=== PATIENT | male | born 1960 | race Caucasian/White ===

== ENCOUNTER → 2022-09-11 | Outpatient (CLI) | payer MEDICARE ==
[2022-09-11 16:50] LABS: BUN/Creat Ratio 20.78 Ratio (12.00-20.00); Blood Urea Nitrogen 18.7 mg/dL (9.0-27.0); Calcium 9.7 mg/dL (8.7-10.3); Carbon Dioxide 29.9 mmol/L (21.6-31.8); Chloride 98 mmol/L (96-109); Glucose 160 mg/dL (70-110); Potassium 4.9 mmol/L (3.5-5.5); Sodium 138 mmol/L (135-145)
[2022-09-11 17:56] LABS: Basophils # (A) 0.05 X 10*3/uL (0.00-0.10); Basophils % (A) 0.7 %; Eosinophils # (A) 0.36 X 10*3/uL (0.04-0.35); Eosinophils % (A) 5.4 %; HCT 43.1 % (39.6-50.0); HGB 13.5 d/dL (13.0-17.0); Lymphocytes # (A) 1.26 X 10*3/uL (0.90-5.00); Lymphocytes % (A) 18.9 %; MCH 28.1 pg (27.0-32.0); MCHC 31.3 d/dL (32.0-37.0); MCV 89.6 FL (80.0-97.0); Mean Platelet Volume 9.8 FL (9.5-12.2); Monocytes # (A) 0.87 X 10*3/uL (0.20-1.00); NRBC Per 100 WBC 0 X 10*3/uL (0.00-0.01); Neutrophils # (A) 4.12 X 10*3/uL (1.80-7.70); Neutrophils % (A) 61.7 %; Platelet Count 216 X 10*3/uL (140-440); RBC 4.81 X 10*6/uL (4.40-5.60); RDW 15.5 % (11.5-14.5); WBC 6.68 X 10*3/uL (4.50-10.00)
== END | disposition home or self-care (01) ==
LOC: LABPAT 12:10
PROVIDERS: ATTEND Urology
DX: Z01.812 Encounter for preprocedural laboratory examination (principal); C61 Malignant neoplasm of prostate
CPT/HCPCS: 80048; 85025

== ENCOUNTER 2022-09-19 05:40 | Observation (INO) | payer MEDICARE ==
[~2022-09-19 05:40] MED LIST: HEPARIN SODIUM,PORCINE/PF 5,000 UNIT/0.5 ML SYRINGE SQ PRN; ceFAZolin 3 GM in SODIUM CHLORIDE 0.9% 100 ML IVPB PRN
[2022-09-19] MEDS ORDERED: DEXAMETHASONE SOD PHOSPHATE 4 MG/ML 1 ML VIAL IV ONE (06:05)
[2022-09-19] MEDS ORDERED: ONDANSETRON 4 MG/2 ML VIAL IVP ONE (06:05)
[2022-09-19] MEDS: LACTATED RINGERS 1,000 ML IV SCH (06:14)
[2022-09-19] MEDS: LACTATED RINGERS 1,000 ML IV ONE ×2 (06:20→14:39)
[2022-09-19 06:44] LABS: Glucose,Whole Blood 137 mg/dL (70-110)
--- NOTE | 2022-09-19 06:45 | P.GSHP ---
History of Present Illness H&P Date: 09/18/22 Chief Complaint: Prostate cancer The patient is a 62-year-old white male found to have an elevated PSA level of 14.6 in June 2022. STERLING revealed the prostate to be firm on the left side, an ultrasound revealed a hypoechoic lesion at the right base. 5 of 6 prostate biopsies showed Jeremie 7 (3+4) adenocarcinoma. Alternative treatment options were reviewed, the patient has elected to undergo a robotic-assisted laparoscopic prostatectomy with bilateral pelvic lymphadenectomy. He has a history coronary artery disease and was cleared by cardiology. He has previously undergone a colon resection for diverticulitis. - Cardiovascular Cardiovascular: Reports high blood pressure - Genitourinary (Male) Genitourinary: Reports urinary hesitancy Medications and Allergies Allergies Allergy/AdvReac Type Severity Reaction Status Date / Time morphine Allergy swelling,it Verified 09/19/22 06:13 chiness Surgical - Exam - General well developed, well nourished, no distress - Respiratory normal respiratory effort - Abdomen Abdomen: soft, non tender, no guarding, no rigid, no rebound - Genitourinary normal penis with no external lesions, testicles non-tender - Rectum Rectum: normal sphincter tone, no masses, other (prostate firm on left) - Psychiatric oriented to time, oriented to person, oriented to place, speech is normal, memory intact Assessment and Plan (1) Malignant neoplasm of prostate Current Visit: No Status: Acute Code(s): C61 - MALIGNANT NEOPLASM OF PROSTATE SNOMED Code(s): 756306799 Plan: The patient has been made aware of the fact that his prostate cancer may require multimodal treatment. He has elected to undergo a robotic-assisted laparoscopic prostatectomy with bilateral pelvic lymphadenectomy. Due to prior abdominal surgery, this will be attempted but the patient is aware of the possibility that it cannot be performed. Potential surgical risks have been reviewed in detail. These include anesthesia, bleeding, infection, bowel injury, urinary leak, lymphocele, and vesical neck contracture. The possibility of post-prostatectomy urinary incontinence has been made clear, and the patient is aware of the high likelihood of erectile dysfunction as he is not a candidate for a nerve sparing procedure. He is also aware of the possible need for adjuvant therapy.
[2022-09-19] MEDS ORDERED: fentaNYL (PF) 50 MCG/ML 2 ML AMP IV PRN (07:00)
[2022-09-19] MEDS ORDERED: MIDAZOLAM 2 MG/2 ML VIAL IVP ONE (07:09)
[2022-09-19] MEDS ORDERED: GLYCOPYRROLATE 0.2 MG/ML 2 ML VIAL ONE (07:48)
[2022-09-19] MEDS ORDERED: LIDOCAINE 2% INJ 20 MG/ML (2 ML VIAL) ONE (07:48)
[2022-09-19] MEDS ORDERED: DEXAMETHASONE SOD PHOSPHATE 4 MG/ML 1 ML VIAL ONE (07:48)
[2022-09-19] MEDS ORDERED: fentaNYL (PF) 50 MCG/ML 2 ML AMP ONE (07:48)
[2022-09-19] MEDS ORDERED: SODIUM CHLORIDE 0.9% (PF) 10 ML VIAL ONE (07:48)
[2022-09-19] MEDS ORDERED: NEOSTIGMINE 1 MG/ML 10 ML VIAL ONE (07:48)
[2022-09-19] MEDS ORDERED: HYDROmorphone (PF) 1 MG/ML ONE (07:48)
[2022-09-19] MEDS ORDERED: SUCCINYLCHOLINE CHLORIDE 200 MG/10 ML VIAL IV ONE (07:48)
[2022-09-19] MEDS ORDERED: ROPIVACAINE 5 MG/ML 30 ML VIAL ONE (07:48)
[2022-09-19] MEDS ORDERED: ROCURONIUM 10 MG/ML (5 ML VIAL) IV ONE (07:48)
[2022-09-19] MEDS ORDERED: MIDAZOLAM 2 MG/2 ML VIAL ONE (07:48)
[2022-09-19] MEDS ORDERED: PROPOFOL 10 MG/ML 20 ML VIAL IV ONE (07:48)
[2022-09-19] MEDS ORDERED: IV FLUID CONTINUATION 1,000 ML IV ONE (07:53)
[2022-09-19] MEDS ORDERED: BUPIVACAINE (PF) 0.25% 30 ML VIAL SQ ONE (10:41)
[2022-09-19] MEDS ORDERED: ACETAMINOPHEN TAB 325 MG TAB PO PRN (11:00)
[2022-09-19] MEDS ORDERED: ONDANSETRON 4 MG/2 ML VIAL IVP PRN (11:00)
[2022-09-19] MEDS ORDERED: KETOROLAC 15 MG/ML 1 ML VIAL IVP PRN (11:00)
--- NOTE | 2022-09-19 12:57 | P.OP ---
Date of Procedure: 09/19/22 Preoperative Diagnosis: Adenocarcinoma of the prostate Postoperative Diagnosis: Same Procedure(s) Performed: Robotic-assisted laparoscopic prostatectomy (RALP) with bilateral pelvic lymphadenectomy Anesthesia: ROOPA Surgeon: Yousuf Garrett Medical Resident #1: Logan Veliz Estimated Blood Loss (ml): 75 IV fluids (ml): 600 Condition: stable Disposition: PACU Indications for Procedure: The patient is a 62-year-old white male found to have an elevated PSA level of 14.6 in June 2022. STERLING revealed the prostate to be firm on the left side, an ultrasound revealed a hypoechoic lesion at the right base. 5 of 6 prostate biopsies showed Jeremie 7 (3+4) adenocarcinoma. Alternative treatment options were reviewed, the patient has elected to undergo a robotic-assisted laparoscopic prostatectomy with bilateral pelvic lymphadenectomy. He has a history coronary artery disease and was cleared by cardiology. He has previously undergone a colon resection for diverticulitis. Operative Findings: No evidence of extraprostatic disease. Description of Procedure: The patient was taken in the operating room and placed in the supine position. He was carefully positioned on a beanbag for stability. The abdomen and external genitalia were prepped and draped sterilely. A Howell catheter was inserted. The Bovie electrocautery was used to make a midline supraumbilical skin incision. The linea alba was carefully incised in the midline, and the peritoneum was entered. Omentum was adherent to the anterior abdominal wall inferior to this, and these adhesions were gently swept away. A gel point mini was then placed, and insufflation was performed to a pressure of 20 mm Hg. Once insufflation was performed, under camera guidance, 3 8 mm robotic ports were placed, 2 on the left and one on the right. A 12 mm port was placed on the right lateral side for use as an first assistant manager port. A 5 mm port was placed to the right of the camera port for suction. The patient was placed in Trendelenburg position, and docking was then performed to the da Leticia system utilizing a 4- arm approach. The abdomen was examined. The sigmoid colon was mobilized out of the pelvis. Adhesions were noted deep in the pelvis, some of which were lysed enough to gain access to the necessary surgical planes. However, it was evident that the small bowel would not fall out of the pelvis as desired. The peritoneum was incised lateral to the medial umbilical ligaments bilaterally, exposing the pubis. The peritoneum was then incised across the midline, allowing the bladder flap to be taken down. The endopelvic fascia was opened bilaterally, and muscular attachments from the urogenital diaphragm were swept away from the prostate. Bilateral pelvic lymphadenectomies were performed in the standard fashion. The peritoneal incisions were extended in a cephalad direction, and the vas deferens were divided bilaterally. Margins of dissection were the bifurcation of the iliac vessels proximally, the circumflex iliac vein distally, the external iliac artery laterally, and the obturator nerve medially. A combination of sharp and blunt dissection was used. Care was taken to avoid any neurovascular injury, and the use of monopolar electrocautery was avoided immediately adjacent to neurovascular structures. Although pathology warranted an extended template, this was not performed given the difficulty with exposure. No enlarged lymph nodes were encountered. There were no complications. The vesical neck was incised transversely, down to the lumen. The Howell catheter was brought out through the anterior vesical neck incision and was used for traction. The posterior aspect of the vesical neck was incised, such that the full-thickness of the vesical neck was divided. The anterior layer of the Denonvilliers fascia was incised, exposing the vas deferens. Each were isolated and divided. Next, each of the seminal vesicles were dissected away from adjacent tissues, and vascular attachments were cauterized and divided. The posterior leaf of Denonvilliers fascia was incised transversely, allowing entry into the plane between the prostate and rectum. With lateral spreading, this plane was developed down to the apex. This exposed the lateral vascular pedicles bilaterally. The da Leticia vessel sealer was used to ligate and divide the vascular pedicles in an antegrade fashion, down to the apex. The remaining apical attachments were swept away from the prostate. The dorsal venous complex was incised, as well as periurethral tissue. At this point, only the urethra remained intact. This was transected immediately distal to the prostatic apex using cold scissors. The specimen was placed within a specimen bag. The dorsal venous complex was sutured using a V-Loc suture in a running fashion. The vesicourethral anastomosis was then performed using a V-Loc suture in a running fashion. After completing the anastomosis, an 18-Latvian Howell catheter was placed. Due to meatal stenosis, it was necessary to use [place] sounds to dilate the urethral meatus. Approximately 150 mL of 0.9 normal saline were instilled into the bladder. No extravasation of irrigant from the vesicourethral anastomosis was noted. A small amount of oozing was noted from the left lateral vascular pedicle, so Surgicel was placed over the vascular pedicles bilaterally. A Roger-Kiran drain was left within the pelvis, and was brought out through the left lateral port. Tisseel was sprayed into the pelvis over the vascular pedicles, dorsal vein, and vesicourethral anastomosis. The patient was returned to the supine position. Undocking was performed, and the specimen bag sutures were passed through the camera port. After removing all the ports and allowing all of the CO2 to be released from the peritoneal cavity, the surgical specimen was removed along with the gel point. The fascia of this incision was then closed using 0 PDS suture in a running fashion. Each of the skin incisions were then closed using 4-0 Monocryl suture in a subcuticular fashion. Marcaine was injected at each of the incision sites. Dermabond was applied to each incision. The Howell catheter was connected to gravity drainage. All sponge and needle counts were correct. The patient tolerated the procedure well was taken to the recovery room in stable condition.
[2022-09-19] MEDS: HYDROmorphone 1 MG/ML 1 ML SYRINGE IVP PRN ×4 (14:22→23:59)
[2022-09-19] MEDS: DEXTROSE 5%-0.45% NACL 1,000 ML IV SCH ×3 (14:43→23:58)
[2022-09-19 16:12] LABS: Glucose,Whole Blood 228 mg/dL (70-110)
[2022-09-19] MEDS ORDERED: DEXTROSE 50% SYRINGE 50 ML IVP PRN ×2 (17:40)
--- NOTE | 2022-09-19 17:43 | P.CONS ---
History of Present Illness - Reason for Consult Consult date: 09/19/22 Medical management Requesting physician: Yousuf Garrett - Chief Complaint Prostate surgery - History of Present Illness This is a pleasant [address] Carmelo Peña. The patient is a 62-year-old white male found to have an elevated PSA level of 14.6 in June 2022. STERLING revealed the prostate to be firm on the left side, an ultrasound revealed a hypoechoic lesion at the right base. 5 of 6 prostate biopsies showed Malo 7 (3+4) adenocarcinoma. Alternative treatment options were reviewed, the patient has elected to undergo a robotic-assisted laparoscopic prostatectomy with bilateral pelvic lymphadenectomy. Patient today underwent robotic-assisted laparoscopic prostatectomy and bilateral pelvic lymphadenectomy. Has a Howell catheter in place. Postprocedure has pain at the operative site. No nausea vomiting. Review of systems: GEN.: Tired EYES: None HEENT: None NECK: None RESPIRATORY: None CARDIOVASCULAR: None GASTROINTESTINAL: None GENITOURINARY: Howell catheter MUSCULOSKELETAL: None LYMPHATICS: None HEMATOLOGICAL: None PSYCHIATRY: None NEUROLOGICAL: None Past medical history to include: Atrial fibrillation, COPD, diabetes, hypertension, osteoarthritis, obstructive sleep apnea uses CPAP, skin cancer, prostate cancer, CAD Social history: . Patient smoked for about 30 years. Stopped some time ago. Alcohol occasionally. Lawn cutter. Physical examination: VITAL SIGNS: 98.3, 78, 17, 121/68, 93% on 2 L GENERAL: BMI 33.9, reclining in bed awake slightly uncomfortable. EYES: Pupils equal. Conjunctiva normal. HEENT: External appearance of nose and ears normal, oral cavity grossly normal. NECK: JVD not raised; masses not palpable. HEART: First and second heart sounds are normal; no edema. LUNGS: Respiratory rate normal; decreased breath sound. ABDOMEN: Soft, nontender, liver spleen not palpable, no masses palpable Howell catheter. PSYCH: Alert and oriented x3; mood and affect likely anxiousl. MUSCULOSKELETAL:No Clubbing/cyanosis;muscles-grossly intact NEUROLOGICAL: Cranial nerves grossly intact; no facial asymmetry, power and sensation grossly intact. LYMPHATICS: No lymph nodes palpable in the axilla and neck INVESTIGATIONS, reviewed in the clinical context: 09/11/2022: White count 6.6 hemoglobin 13.5 platelets 216 sodium 138 potassium 4.9 creatinine 0.9 Assessment and plan: -Prostate adenocarcinoma with elevated PSA of 14.6 in June 2022. 506 prostate biopsy showed ileus and 7 adenocarcinoma. robotic-assisted laparoscopic prostatectomy with bilateral pelvic lymphadenectomy.-By Dr. garrett today. Howell catheter in place. -Paroxysmal atrial fibrillation Currently eliquis on hold. Toprol-XL 50 mg day. -COPD in an ex-smoker Symbicort -Depression otherwise specified Cymbalta -Diabetes mellitus type 2, chronically on insulin Resume Lantus. Follow Accu-Cheks with sliding scale. Hold Glucophage for now. -GERD PPI -Hyperlipidemia Crestor -CAD Care was discussed with the patient. Follow Accu-Cheks. Questions answered. Place on telemetry. Thank you Dr. garrett Past Medical History Past Medical History: Atrial Fibrillation, Asthma, Cancer, COPD, Diabetes Mellitus, Hypertension, Myocardial Infarction (AL), Osteoarthritis (OA), Sleep Apnea/CPAP/BIPAP Additional Past Medical History / Comment(s): prostate cancer, skin cancer, uses cpap Last Myocardial Infarction Date:: 2004 History of Any Multi-Drug Resistant Organisms: None Reported Past Surgical History: Back Surgery, Hernia Repair Additional Past Surgical History / Comment(s): Quad bypass, hip surgerys left hip, anurysm repair, colon resection Smoking Status: Former smoker - Past Family History Father Family Medical History: Asthma Mother Additional Family Medical History / Comment(s): depression Medications and Allergies Home Medications Medication Instructions Recorded Confirmed Type Apixaban [Eliquis] 5 mg PO BID 09/19/22 09/19/22 History Budesonide/Formoterol Fumarate 2 puff INHALATION BID 09/19/22 09/19/22 History [Symbicort 80-4.5 Mcg Inhaler] Clobetasol Propionate [Temovate 1 applic TOPICAL HS 09/19/22 09/19/22 History 0.05% Oint] DULoxetine HCL [Cymbalta] 60 mg PO DAILY 09/19/22 09/19/22 History Furosemide [Lasix] 40 mg PO DAILY 09/19/22 09/19/22 History Insulin Glargine [Lantus Vial] 58 unit SQ HS 09/19/22 09/19/22 History Metoprolol Succinate (ER) [Toprol 50 mg PO DAILY 09/19/22 09/19/22 History Xl] Multivitamin [Multivitamins Adult 1 each PO DAILY 09/19/22 09/19/22 History Gummies] Omeprazole 20 mg PO DAILY 09/19/22 09/19/22 History Rosuvastatin Calcium 40 mg PO HS 09/19/22 09/19/22 History Spironolactone [Aldactone] 25 mg PO DAILY 09/19/22 09/19/22 History Turmeric Root Extract [Turmeric] 1 tab PO HS 09/19/22 09/19/22 History busPIRone HCL 15 mg PO BID 09/19/22 09/19/22 History lisinopriL [Zestril] 10 mg PO DAILY 09/19/22 09/19/22 History metFORMIN HCL [Glucophage] 850 mg PO BID 09/19/22 09/19/22 History Allergies Allergy/AdvReac Type Severity Reaction Status Date / Time morphine Allergy swelling,it Verified 09/19/22 06:13 chiness Physical Exam Vitals: Vital Signs Temp Pulse Pulse Resp BP Pulse Ox 09/19/22 15:16 98.3 F 78 17 121/68 93 L 09/19/22 13:46 78 16 125/59 93 L 09/19/22 13:30 78 16 118/68 93 L 09/19/22 13:18 72 16 112/64 93 L 09/19/22 13:00 72 16 110/56 93 L 09/19/22 12:45 76 16 117/59 93 L 09/19/22 12:30 78 16 110/57 93 L 09/19/22 12:15 69 16 115/56 95 09/19/22 12:00 70 16 116/56 96 09/19/22 11:46 76 16 132/64 96 09/19/22 11:32 85 16 133/60 96 09/19/22 11:14 97 F L 99 18 160/72 93 L 09/19/22 07:20 70 18 98 09/19/22 06:12 98.5 F 80 18 148/69 95 Intake and Output 09/19/22 09/19/22 09/19/22 06:59 14:59 22:59 Intake Total 200 700 Output Total 1175 Balance 200 -475 Intake: IV 200 700 Output: Urine 1100 Estimated Blood Loss 75 Other: Weight 126.2 kg 126.2 kg Results Labs: Abnormal Lab Results - Last 24 Hours (Table) 09/19/22 09/19/22 Range/Units 06:39 16:11 POC Glucose (mg/dL) 137 H 228 H (70-110) mg/dL
[2022-09-19] MEDS: INSULIN ASPART (NovoLOG) 100 UNIT/ML VIAL SQ SCH (18:17)
[2022-09-19 20:51] LABS: Glucose,Whole Blood 293 mg/dL (70-110)
[2022-09-19] MEDS: busPIRone HCl 5 MG TAB PO SCH (21:28)
[2022-09-19] MEDS: ATORVASTATIN 80 MG TAB PO SCH (21:28)
[2022-09-19] MEDS: INSULIN DETEMIR (LEVEMIR) 100 UNIT/ML SYR SQ SCH (21:28)
[2022-09-19] MEDS: CLOBETASOL PROP 0.05% OINT 15GM TOPICAL SCH (21:29)
[2022-09-19] MEDS: SYMBICORT 80-4.5 MCG INHALER INHALATION SCH (21:41)
[2022-09-20 05:37] LABS: Glucose,Whole Blood 230 mg/dL (70-110)
[2022-09-20] MEDS: HYDROmorphone 1 MG/ML 1 ML SYRINGE IVP PRN ×2 (05:54→09:08)
[2022-09-20 06:26] LABS: Basophils % (A) 0 %; Eosinophils % (A) 0 %; HCT 36.5 % (39.0-53.0); HGB 11.7 gm/dL (13.0-17.5); Hypochromasia Slight; Lymphocytes # (A) 0.9 k/uL (1.0-4.8); Lymphocytes % (A) 9 %; MCH 29.5 pg (25.0-35.0); MCHC 32.2 g/dL (31.0-37.0); MCV 91.8 fL (80.0-100.0); Mean Platelet Volume 7.6; Monocytes # (A) 0.8 k/uL (0-1.0); Monocytes % (A) 8 %; Neutrophils % (A) 80 %; Platelet Count 156 k/uL (150-450); RBC 3.97 m/uL (4.30-5.90); RDW 15.3 % (11.5-15.5)
[2022-09-20 06:37] LABS: African American GFR (CKD) >90 (>60 ml/min/1.73 sqM); Anion Gap 7 mmol/L; Blood Urea Nitrogen 17 mg/dL (9-20); Calcium 8.2 mg/dL (8.4-10.2); Carbon Dioxide 23 mmol/L (22-30); Chloride 105 mmol/L (98-107); Glucose 220 mg/dL (74-99); Non-African American GFR(CKD) >90 (>60 ml/min/1.73 sqM); Potassium 4.3 mmol/L (3.5-5.1); Sodium 135 mmol/L (137-145)
[2022-09-20] MEDS: PANTOPRAZOLE 40 MG TABLET PO SCH (07:09)
[2022-09-20] MEDS: INSULIN ASPART (NovoLOG) 100 UNIT/ML VIAL SQ SCH ×3 (07:09→17:48)
[2022-09-20] MEDS: SYMBICORT 80-4.5 MCG INHALER INHALATION SCH ×2 (07:38→22:21)
[2022-09-20] MEDS: LACTATED RINGERS 1,000 ML IV SCH (08:18)
[2022-09-20] MEDS: DULoxetine HCL 60 MG CAPSULE.DR PO SCH (09:08)
[2022-09-20] MEDS: MULTIVITAMINS, THERA 1 EACH TAB PO SCH (09:08)
[2022-09-20] MEDS: busPIRone HCl 5 MG TAB PO SCH ×2 (09:08→20:31)
[2022-09-20] MEDS: METOPROLOL SUCCINATE (ER) 50 MG TAB.ER.24H PO SCH (09:08)
[2022-09-20] MEDS: FUROSEMIDE 40 MG TAB PO SCH (09:08)
[2022-09-20] MEDS: lisinopriL 10 MG TAB PO SCH (09:08)
[2022-09-20] MEDS: SPIRONOLACTONE 25 MG TAB PO SCH (09:08)
[2022-09-20] MEDS ORDERED: HYDROcodone/APAP 5-325MG 1 EACH TAB PO PRN (09:27)
[2022-09-20 11:57] LABS: Glucose,Whole Blood 209 mg/dL (70-110)
[2022-09-20] MEDS: HYDROcodone/APAP 5-325MG 1 EACH TAB PO PRN ×3 (12:01→20:31)
[2022-09-20] MEDS: DEXTROSE 5%-0.45% NACL 1,000 ML IV SCH ×2 (12:03→20:05)
[2022-09-20 16:51] LABS: Glucose,Whole Blood 199 mg/dL (70-110)
--- NOTE | 2022-09-20 18:09 | P.PN ---
Progress Note - Text Progress Note Date: 09/20/22 - Chief Complaint Prostate surgery - History of Present Illness This is a pleasant [address] Carmelo Peña. The patient is a 62-year-old white male found to have an elevated PSA level of 14.6 in June 2022. STERLING revealed the prostate to be firm on the left side, an ultrasound revealed a hypoechoic lesion at the right base. 5 of 6 prostate biopsies showed Hastings 7 (3+4) adenocarcinoma. Alternative treatment options were reviewed, the patient has elected to undergo a robotic-assisted laparoscopic prostatectomy with bilateral pelvic lymphadenectomy. Patient today underwent robotic-assisted laparoscopic prostatectomy and bilateral pelvic lymphadenectomy. Has a Howell catheter in place. Postprocedure has pain at the operative site. No nausea vomiting. September 20: Sitting at the edge of the bed. at the bedside. Did eat a little bit. Howell catheter in place. RUBY drain-about 130 mL of serosanguineous discharge. Pain at the operative site. Did walk a bit. Active Medications Acetaminophen (Acetaminophen Tab 325 Mg Tab) 650 mg PO Q4HR PRN PRN Reason: Fever Stop: 10/19/22 11:01 Hydrocodone Bitart/Acetaminophen (Hydrocodone/Apap 5-325mg 1 Each Tab) 2 each PO Q4HR PRN PRN Reason: Moderate to Severe Pain (4-10) Last Admin: 09/20/22 16:25 Dose: 2 each Hydrocodone Bitart/Acetaminophen (Hydrocodone/Apap 5-325mg 1 Each Tab) 1 each PO Q4HR PRN PRN Reason: Mild Pain (1 - 3) Atorvastatin Calcium (Atorvastatin 80 Mg Tab) 80 mg PO [facility] Stop: 10/19/22 21:01 Last Admin: 09/19/22 21:28 Dose: 80 mg Budesonide/Formoterol Fumarate (Symbicort 80-4.5 Mcg Inhaler) 2 puff INHALATION BID [facility] Stop: 10/19/22 21:01 Last Admin: 09/20/22 07:38 Dose: 2 puff Buspirone HCl (Buspirone Hcl 5 Mg Tab) 15 mg PO BID [facility] Stop: 10/19/22 21:01 Last Admin: 09/20/22 09:08 Dose: 15 mg Clobetasol Propionate (Clobetasol Prop 0.05% Oint 15gm) 1 applic TOPICAL [facility]; Protocol Last Admin: 09/19/22 21:29 Dose: Not Given Dextrose/Water (Dextrose 50% Syringe 50 Ml) 25 ml IVP PER PROTOCOL PRN; Protocol PRN Reason: Hypoglycemia Dextrose/Water (Dextrose 50% Syringe 50 Ml) 50 ml IVP PER PROTOCOL PRN; Protocol PRN Reason: Hypoglycemia Duloxetine HCl (Duloxetine Hcl 60 Mg Capsule.Dr) 60 mg PO DAILY [facility] Stop: 10/20/22 09:01 Last Admin: 09/20/22 09:08 Dose: 60 mg Furosemide (Furosemide 40 Mg Tab) 40 mg PO DAILY [facility] Stop: 10/20/22 09:01 Last Admin: 09/20/22 09:08 Dose: 40 mg Hydromorphone HCl (Hydromorphone 1 Mg/Ml 1 Ml Syringe) 1 mg IVP Q2HR PRN PRN Reason: Severe Pain (Scale 7 to 10) Stop: 10/19/22 11:01 Last Admin: 09/20/22 09:08 Dose: 1 mg Lactated Ringer's (Lactated Ringers) 1,000 mls @ 20 mls/hr IV .Q24H [facility] Stop: 10/19/22 06:06 Last Admin: 09/20/22 08:18 Dose: Not Given Dextrose/Sodium Chloride (Dextrose 5%-1/2ns Iv Soln) 1,000 mls @ 125 mls/hr IV .Q8H [facility] Stop: 10/19/22 11:01 Last Admin: 09/20/22 12:03 Dose: Not Given Insulin Aspart (Insulin Aspart (Novolog) 100 Unit/Ml Vial) 0 unit SQ AC-TID [facility]; Protocol Last Admin: 09/20/22 17:48 Dose: 3 unit Insulin Detemir (Insulin Detemir (Levemir) 100 Unit/Ml Syr) 46 unit SQ [facility] Last Admin: 09/19/22 21:28 Dose: 46 unit Ketorolac Tromethamine (Ketorolac 15 Mg/Ml 1 Ml Vial) 15 mg IVP Q6HR PRN PRN Reason: Mild to Moderate Pain (1 - 6) Stop: 09/22/22 11:03 Lisinopril (Lisinopril 10 Mg Tab) 10 mg PO DAILY [facility] Stop: 10/20/22 09:01 Last Admin: 09/20/22 09:08 Dose: 10 mg Metoprolol Succinate (Metoprolol Succinate (Er) 50 Mg Tab.Er.24h) 50 mg PO DAILY [facility] Stop: 10/20/22 09:01 Last Admin: 09/20/22 09:08 Dose: 50 mg Multivitamins (Multivitamins, Thera 1 Each Tab) 1 each PO DAILY [facility] Last Admin: 09/20/22 09:08 Dose: 1 each Ondansetron HCl (Ondansetron 4 Mg/2 Ml Vial) 4 mg IVP Q8HR PRN PRN Reason: Nausea Stop: 10/19/22 11:01 Pantoprazole Sodium (Pantoprazole 40 Mg Tablet) 40 mg PO AC-BRKFST [facility] Last Admin: 09/20/22 07:09 Dose: 40 mg Spironolactone (Spironolactone 25 Mg Tab) 25 mg PO DAILY [facility] Stop: 10/20/22 09:01 Last Admin: 09/20/22 09:08 Dose: 25 mg Past medical history to include: Atrial fibrillation, COPD, diabetes, hypertension, osteoarthritis, obstructive sleep apnea uses CPAP, skin cancer, prostate cancer, CAD Social history: . Patient smoked for about 30 years. Stopped some time ago. Alcohol occasionally. Lawn cutter. Physical examination: VITAL SIGNS: 98.1, 70, 18, 123/60, 92% room air GENERAL: Sitting at the edge of the bed EYES: Pupils equal. Conjunctiva normal. HEENT: External appearance of nose and ears normal, oral cavity grossly normal. NECK: JVD not raised; masses not palpable. HEART: First and second heart sounds are normal; no edema. LUNGS: Respiratory rate normal; decreased breath sound. ABDOMEN: Soft, nontender, liver spleen not palpable, no masses palpable Howell catheter. RUBY drain. PSYCH: Alert and oriented x3; mood and affect likely anxiousl. MUSCULOSKELETAL:No Clubbing/cyanosis;muscles-grossly intact INVESTIGATIONS, reviewed in the clinical context: September 20: White count and hemoglobin 9.7 platelets 156 potassium 4.3 creatinine 0.75 09/11/2022: White count 6.6 hemoglobin 13.5 platelets 216 sodium 138 potassium 4.9 creatinine 0.9 Assessment and plan: -Prostate adenocarcinoma with elevated PSA of 14.6 in June 2022. 506 prostate biopsy showed ileus and 7 adenocarcinoma. robotic-assisted laparoscopic prostatectomy with bilateral pelvic lymphadenectomy.-By Dr. armas today. Howell catheter in place. RUBY drain. -Paroxysmal atrial fibrillation Eliquis to resume when okay with Dr. armas. Toprol-XL 50 mg day. -COPD in an ex-smoker Symbicort -Acute postprocedure blood loss anemia expected from surgery Follow H&H -Depression otherwise specified Cymbalta -Diabetes mellitus type 2, chronically on insulin Lantus. Follow Accu-Cheks with sliding scale. Hold Glucophage for now. -GERD PPI -Hyperlipidemia Crestor -CAD Discussed with patient and . Increase activity as tolerate. Continue current medications. Thank you Dr. armas
[2022-09-20] MEDS: ATORVASTATIN 80 MG TAB PO SCH (20:31)
[2022-09-20] MEDS: CLOBETASOL PROP 0.05% OINT 15GM TOPICAL SCH (20:31)
[2022-09-20] MEDS: INSULIN DETEMIR (LEVEMIR) 100 UNIT/ML SYR SQ SCH (20:34)
[2022-09-20 21:40] LABS: Glucose,Whole Blood 197 mg/dL (70-110)
[2022-09-21] MEDS: HYDROcodone/APAP 5-325MG 1 EACH TAB PO PRN ×3 (02:45→10:14)
[2022-09-21] MEDS: DEXTROSE 5%-0.45% NACL 1,000 ML IV SCH (03:47)
[2022-09-21 05:28] LABS: Glucose,Whole Blood 140 mg/dL (70-110)
[2022-09-21] MEDS: INSULIN ASPART (NovoLOG) 100 UNIT/ML VIAL SQ SCH (05:47)
[2022-09-21] MEDS: LACTATED RINGERS 1,000 ML IV SCH (05:47)
[2022-09-21] MEDS: PANTOPRAZOLE 40 MG TABLET PO SCH (06:35)
--- NOTE | 2022-09-21 08:33 | P.DS ---
Providers Date of admission: 09/20/22 07:51 Expected date of discharge: 09/21/22 Attending physician: Yousuf Garrett Consults: 09/19/22 12:00 Consult Physician Routine Consulting Provider: Harjeet Pagan Consult Reason/Comments: Medical Management Do you want consulting provider notified?: Yes Primary care physician: Carmelo Faroese - Discharge Diagnosis(es) (1) Malignant neoplasm of prostate Current Visit: No Status: Acute Hospital Course: On the day of admission, the patient underwent an RALP. The perioperative course was unremarkable. The patient remained afebrile with stable vital signs. On the first postoperative day, he reported incisional discomfort but otherwise felt well. He was feeling better at the time of discharge. He was tolerating diet and denied nausea. On examination, the incisions were clean, dry, and intact. Howell catheter was draining clear yellow urine. The RUBY drain was draining 50-150 mL of serosanguineous fluid per shift. Procedures: Robotic-assisted laparoscopic prostatectomy (RALP) with bilateral pelvic lymph node dissection on 09/19/2022. Patient Condition at Discharge: Good Plan - Discharge Summary New Discharge Prescriptions: New Cephalexin [Keflex] 500 mg PO Q8HR 1 Days #9 cap HYDROcodone/APAP 5-325MG [[place] 5-325] 1 - 2 tab PO Q4HR PRN #6 tab PRN Reason: Pain Ketorolac [Toradol] 10 mg PO Q6HR PRN #12 tab PRN Reason: Pain No Action Metoprolol Succinate (ER) [Toprol Xl] 50 mg PO DAILY Turmeric Root Extract [Turmeric] 1 tab PO HS Multivitamin [Multivitamins Adult Gummies] 1 each PO DAILY Apixaban [Eliquis] 5 mg PO BID lisinopriL [Zestril] 10 mg PO DAILY Furosemide [Lasix] 40 mg PO DAILY DULoxetine HCL [Cymbalta] 60 mg PO DAILY Insulin Glargine [Lantus Vial] 58 unit SQ HS Spironolactone [Aldactone] 25 mg PO DAILY busPIRone HCL 15 mg PO BID Omeprazole 20 mg PO DAILY Clobetasol Propionate [Temovate 0.05% Oint] 1 applic TOPICAL HS Rosuvastatin Calcium 40 mg PO HS metFORMIN HCL [Glucophage] 850 mg PO BID Budesonide/Formoterol Fumarate [Symbicort 80-4.5 Mcg Inhaler] 2 puff INHALATION BID Discharge Medication List Apixaban [Eliquis] 5 mg PO BID 09/19/22 [History] Budesonide/Formoterol Fumarate [Symbicort 80-4.5 Mcg Inhaler] 2 puff INHALATION BID 09/19/22 [History] Clobetasol Propionate [Temovate 0.05% Oint] 1 applic TOPICAL HS 09/19/22 [History] DULoxetine HCL [Cymbalta] 60 mg PO DAILY 09/19/22 [History] Furosemide [Lasix] 40 mg PO DAILY 09/19/22 [History] Insulin Glargine [Lantus Vial] 58 unit SQ HS 09/19/22 [History] Metoprolol Succinate (ER) [Toprol Xl] 50 mg PO DAILY 09/19/22 [History] Multivitamin [Multivitamins Adult Gummies] 1 each PO DAILY 09/19/22 [History] Omeprazole 20 mg PO DAILY 09/19/22 [History] Rosuvastatin Calcium 40 mg PO HS 09/19/22 [History] Spironolactone [Aldactone] 25 mg PO DAILY 09/19/22 [History] Turmeric Root Extract [Turmeric] 1 tab PO HS 09/19/22 [History] busPIRone HCL 15 mg PO BID 09/19/22 [History] lisinopriL [Zestril] 10 mg PO DAILY 09/19/22 [History] metFORMIN HCL [Glucophage] 850 mg PO BID 09/19/22 [History] Cephalexin [Keflex] 500 mg PO Q8HR 1 Days #9 cap 09/21/22 [Rx] HYDROcodone/APAP 5-325MG [[place] 5-325] 1 - 2 tab PO Q4HR PRN #6 tab 09/21/22 [Rx] Ketorolac [Toradol] 10 mg PO Q6HR PRN #12 tab 09/21/22 [Rx] Follow up Appointment(s)/Referral(s): Yousuf Garrett MD [STAFF PHYSICIAN] - 3 Days Activity/Diet/Wound Care/Special Instructions: Discharge home with Howell catheter. Instruct patient to use overnight drainage bag as well as urinary leg bag. Please teach patient to measure and record RUBY output. Diet as tolerated. No lifting, driving, or strenuous activity. Reassure patient that abdominal wall ecchymosis and penoscrotal swelling are normal. Patient to call Dr. Garrett on 09/23/2022 Re: RUBY output. Discharge Disposition: HOME SELF-CARE
[2022-09-21] MEDS: DULoxetine HCL 60 MG CAPSULE.DR PO SCH (08:39)
[2022-09-21] MEDS: MULTIVITAMINS, THERA 1 EACH TAB PO SCH (08:40)
[2022-09-21] MEDS: SPIRONOLACTONE 25 MG TAB PO SCH (08:40)
[2022-09-21] MEDS: lisinopriL 10 MG TAB PO SCH (08:40)
[2022-09-21] MEDS: busPIRone HCl 5 MG TAB PO SCH (08:40)
[2022-09-21] MEDS: METOPROLOL SUCCINATE (ER) 50 MG TAB.ER.24H PO SCH (08:40)
[2022-09-21] MEDS: FUROSEMIDE 40 MG TAB PO SCH (08:40)
[2022-09-21] MEDS: SYMBICORT 80-4.5 MCG INHALER INHALATION SCH (08:45)
[2022-09-21 09:03] VITALS: BP 120/66; PULSE 77; RESP 18; TEMP 98
--- NOTE | 2022-09-22 19:07 | P.ANPRN ---
Procedure Note - Anesthesia - Nerve Block Performed Bilateral Erector Spinae Single Time Out Performed: Yes Date of Procedure: 09/19/22 Procedure Start Time: : Procedure Stop Time: :15 Location of Patient: PreOp Indication: Acute Post-Operative Pain, Requested by Surgeon Sedation Type: Sedate with meaningful contact maintained Preparation: Sterile Prep Position: Prone Needle Types: Pajunk Needle Gauge: 21 Ultrasound used to visualize needle placement: Yes Ultrasound used to observe medication spread: Yes Blood Aspirated: No Pain Paresthesia on Injection Noted: No Resistance on Injection: Normal Image Stored and Saved: Yes Events: Uneventful and Well Tolerated (Ropivacaine 0.5% 15 mL plus normal saline 10 mL plus dexamethasone 4 mg given bilaterally at L1)
== END 2022-09-21 12:51 | disposition home or self-care (01) ==
LOC: OR 05:40 → 4SSUR 11:02 → OR 09-20 07:51 → 4SSUR 09-20 07:51
PROVIDERS: ADMIT Urology; ATTEND Urology
DX: C61 Malignant neoplasm of prostate (principal); D62 Acute posthemorrhagic anemia; I48.0 Paroxysmal atrial fibrillation; I25.10 Atherosclerotic heart disease of native coronary artery without angina pectoris; J44.9 Chronic obstructive pulmonary disease, unspecified; I10 Essential (primary) hypertension; E11.9 Type 2 diabetes mellitus without complications; G47.33 Obstructive sleep apnea (adult) (pediatric); K21.9 Gastro-esophageal reflux disease without esophagitis; E78.5 Hyperlipidemia, unspecified; M19.90 Unspecified osteoarthritis, unspecified site; F41.9 Anxiety disorder, unspecified; F32.A Depression, unspecified; F17.290 Nicotine dependence, other tobacco product, uncomplicated; Z79.01 Long term (current) use of anticoagulants; Z79.4 Long term (current) use of insulin; Z79.51 Long term (current) use of inhaled steroids; Z79.84 Long term (current) use of oral hypoglycemic drugs; Z79.899 Other long term (current) drug therapy; Z88.5 Allergy status to narcotic agent; Z90.49 Acquired absence of other specified parts of digestive tract; Z87.19 Personal history of other diseases of the digestive system; Z95.1 Presence of aortocoronary bypass graft; Z95.5 Presence of coronary angioplasty implant and graft; Z85.828 Personal history of other malignant neoplasm of skin; Z98.890 Other specified postprocedural states; Z82.5 Family history of asthma and other chronic lower respiratory diseases; Z81.8 Family history of other mental and behavioral disorders
CPT/HCPCS: 38571; 55866; S2900; 64999; 80048; 85025; 86850; 86900; 86901; 88307; 88309; 88344; 94640

== ENCOUNTER → 2024-03-18 | Outpatient (CLI) | payer MEDICARE ==
[2024-03-18 15:08] VITALS: BP 161/84; PULSE 77; RESP 18; TEMP 98.1
--- NOTE | 2024-03-18 16:13 | P.SLEEP ---
History of Present Illness DATE: 03/18/2024 CONSULTATION/NEW PATIENT EVALUATION HISTORY OF PRESENT ILLNESS/SLEEP-WAKE EVALUATION: 64-year-old gentleman had b een evaluated in the sleep center for obstructive sleep apnea hypopnea syndrome. Patient has history of obstructive sleep apnea for more than 10 years. He continued to use his CPAP equipment every night but still wake up from sleep several times during the night. I checked CPAP unit CPAP pressure is 14 cm of water. Usage is 100% of nights, average 9.3 hours per night. Leak is high 61 L/min. Patient is using nasal pillow mask. Feels dryness in his mouth. Apnea hypopnea index is 0.5 which is normal. SLEEP SCHEDULE: Usually sleep schedule from 1011 PM to 89 AM 7 days a week. FALLING ASLEEP: Sometimes patient has difficulties with falling asleep, has TV set in bedroom. DURING SLEEP: Patient snores and wakes up from sleep up to 3 times. No history of hypnogogical hallucinations, sleep paralysis, or cataplexy. DURING THE DAY/WAKE STATE: []. [place] sleepiness scale is 3, which is normal. Patient may take up to 2 naps during the day. PAST MEDICAL HISTORY: Hypertension, diabetes, acid reflux, hyperlipidemia, asthma, bronchitis. PAST SURGICAL HISTORY: 2 back surgeries, surgery for aortic aneurysm, prostate surgery. MEDICATIONS: Please see below. SOCIAL HISTORY: Please see below. FAMILY HISTORY: Please see below. REVIEW OF SYSTEMS: Awakenings from sleep. No fevers. No double vision. No recent chest pain. No shortness of breath. No abdominal pain. No bleeding episodes. No blood in urine. No seizure episodes. PHYSICAL EXAMINATION: GENERAL: A pleasant patient without any distress. VITAL SIGNS: Please see below, weight 285 pounds, BMI 38.1. HEENT: PERRLA, EOMI. Evaluation of oropharynx showed tongue protrudes midline, low position of soft palate Mallampati 3. NECK: Supple. No JVD. Thyroid is not palpable. 20 inches in circumference. LUNGS: Clear to percussion and to auscultation. Good air exchange. No wheezing or rhonchi. HEART: S1, S2 regular. No murmurs, gallops or rubs. ABDOMEN: Soft and nontender. Bowel sounds are present. No organomegaly appreciated. EXTREMITIES: No clubbing or cyanosis. 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 Cranial nerves 2 to 7 intact. There is no fasciculation or atrophy noted. No focal deficits observed. ASSESSMENT: 1. Obstructive sleep apnea hypopnea syndrome for 10 years. Low position of soft palate Mallampati 3, wide neck 20 inches in circumference. Patient demonstrated 100% usage of CPAP unit. Normal apnea-hypopnea index, but patient still wakes up from sleep while using CPAP. 2. Obesity, BMI 38.1. 3. Hypertension. 4. Hyperlipidemia. 5 asthma. 6 . Status post several back surgeries. 7. Status post several hip surgeries. 8. Status post prostate surgery. I adjusted CPAP unit to AutoPap with range of the pressure 10 to 15 cm of water. PLAN: 1. Patient will continue to use CPAP equipment every night for the whole night. 2. Prescription for all necessary CPAP supplies. 3. Preferable position during sleep on the side. 4. No driving if patient feels any sleepiness. Patient is aware of civil and criminal liability for unsafe driving. 5. Sleep hygiene with regular sleep time for at least 7.5-8 hours. 6. Watching and losing weight. 7. Follow-up visit in 2-3 months. Thank you very much for referring this patient for consultation. Sincerely, Tom Falcon MD, PhD, FAASM. Diplomat of [employer], Sleep Medicine Board by [employer] Cover Marker [facility] [place] cc: Carmelo Peña MD Past Medical History Past Medical History: Atrial Fibrillation, Asthma, Cancer, COPD, Diabetes Mellitus, Hypertension, Myocardial Infarction (MD), Osteoarthritis (OA), Sleep Apnea/CPAP/BIPAP Additional Past Medical History / Comment(s): prostate cancer, skin cancer, uses cpap, Depression Last Myocardial Infarction Date:: 2004 History of Any Multi-Drug Resistant Organisms: None Reported Past Surgical History: Back Surgery, Hernia Repair Additional Past Surgical History / Comment(s): Quad bypass, 5 hip surgerys left hip, anurysm repair, colon resection, prostate surgery, skin cancer - r forearm Past Psychological History: Anxiety, Depression Additional Psychological History / Comment(s): patient lost son April 2022, lives home with and dog Smoking Status: Former smoker Past Alcohol Use History: Daily Past Drug Use History: Marijuana - Past Family History Father Family Medical History: Asthma, Cancer, CVA/TIA, Hyperlipidemia Additional Family Medical History / Comment(s): Arthritis, Mother Family Medical History: Hyperlipidemia Additional Family Medical History / Comment(s): depression, arthritis, Medications and Allergies Home Medications Medication Instructions Recorded Confirmed Type Apixaban [Eliquis] 5 mg PO BID 09/19/22 03/18/24 History Budesonide/Formoterol Fumarate 4 puff INHALATION BID 09/19/22 03/18/24 History [Symbicort 80-4.5 Mcg Inhaler] Clobetasol Propionate [Temovate 1 applic TOPICAL HS 09/19/22 09/19/22 History 0.05% Oint] DULoxetine HCL [Cymbalta] 90 mg PO DAILY 09/19/22 03/18/24 History Furosemide [Lasix] 40 mg PO DAILY 09/19/22 09/19/22 History Insulin Glargine (Lantus) [Lantus 58 unit SQ HS 09/19/22 03/18/24 History Vial] Metoprolol Succinate (ER) [Toprol 50 mg PO DAILY 09/19/22 03/18/24 History Xl] Multivitamin [Multivitamins Adult 1 each PO DAILY 09/19/22 03/18/24 History Gummies] Omeprazole 20 mg PO DAILY 09/19/22 03/18/24 History Rosuvastatin Calcium 40 mg PO HS 09/19/22 03/18/24 History Spironolactone [Aldactone] 25 mg PO DAILY 09/19/22 03/18/24 History Turmeric Root Extract [Turmeric] 1,000 mg PO HS 09/19/22 03/18/24 History busPIRone HCL 15 mg PO DAILY 09/19/22 03/18/24 History lisinopriL [Zestril] 10 mg PO DAILY 09/19/22 03/18/24 History metFORMIN HCL [Glucophage] 850 mg PO BID 09/19/22 09/19/22 History Cephalexin [Keflex] 500 mg PO Q8HR 1 Days #9 cap 09/21/22 Rx Ketorolac [Toradol] 10 mg PO Q6HR PRN #12 tab 09/21/22 Rx Empagliflozin [Jardiance] 10 mg PO DAILY 03/18/24 03/18/24 History HYDROcodone/APAP 5-325MG [[place] 500 mg PO DIRECTED PRN 03/18/24 03/18/24 History 5-325] Terbinafine [LamISIL] 250 mg PO DAILY 03/18/24 03/18/24 History Allergies Allergy/AdvReac Type Severity Reaction Status Date / Time morphine Allergy swelling,it Verified 09/19/22 06:13 chiness Physical Exam Vitals: Vital Signs Temp Pulse Resp BP Pulse Ox 03/18/24 15:07 98.1 F 77 18 161/84 96 Intake and Output 03/18/24 03/18/24 03/18/24 06:59 14:59 22:59 Other: Weight 127.459 kg Sleep Note - Sleep Data ESS Total: 3 - Sleep Note Sleep Note: Temperature: 98.1 F Pulse Rate: 77 Respiratory Rate: 18 Blood Pressure: 161/84 SpO2: 96 Height: 6 ft Weight: 127.459 kg BMI: Neck Circumference: 20
== END ==
LOC: 3 N SLEEP 14:41
PROVIDERS: ATTEND Internal Medicine
DX: G47.33 Obstructive sleep apnea (adult) (pediatric) (principal); E66.9 Obesity, unspecified; E78.5 Hyperlipidemia, unspecified; I10 Essential (primary) hypertension; J45.909 Unspecified asthma, uncomplicated; Z99.89 Dependence on other enabling machines and devices; Z98.890 Other specified postprocedural states; Z68.38 Body mass index [BMI] 38.0-38.9, adult; Z88.5 Allergy status to narcotic agent
CPT/HCPCS: 99211